=== PATIENT | male | born 1990 | race Caucasian/White ===

== ENCOUNTER 2017-05-11 13:31 | Emergency (ER) | payer OTHER ==
[~2017-05-11] VITALS: Ht 180.3 cm; Wt 99.8 kg
[2017-05-11 13:54] VITALS: BP 157/70
[2017-05-11] MEDS ORDERED: LIDOCAINE 1% PF 2 ML VIAL. INJ ONE (14:00)
--- NOTE | 2017-05-11 14:09 | PHYS DOC ---
Past Medical History Past Medical History: No Pertinent History Past Surgical History: Tonsillectomy Alcohol Use: None Drug Use: None Adult General Chief Complaint Chief Complaint: LACERATION/AVULSION HPI HPI Patient is a 26 year old male presents to the emergency department with complaints of a laceration to back of the head. Patient works for [employer] and was placing batteries on a shelf when 3 batteries fell one striking him in the back of her head. Patient states that he put his arms over his head to prevent any other injury to his head. He states he did hit a battery on the left upper extremity. He has no complaints of headache, blurred vision, double vision. He states he did not have loss of consciousness. He has no neck pain. Hemostasis obtained prior to arrival. Review of Systems Review of Systems Constitutional: Denies fever or chills [] Eyes: Denies change in visual acuity, redness, or eye pain [] HENT: Denies nasal congestion or sore throat [] Respiratory: Denies cough or shortness of breath [] Cardiovascular: No additional information not addressed in HPI [] GI: Denies abdominal pain, nausea, vomiting, bloody stools or diarrhea [] : Denies dysuria or hematuria [] Musculoskeletal: Denies back pain or joint pain [] Integument: Contusion left upper extremity, laceration scalp Neurologic: Denies headache, focal weakness or sensory changes [] Endocrine: Denies polyuria or polydipsia [] All other systems were reviewed and found to be within normal limits, except as documented in this note. Current Medications Current Medications Current Medications Medications (Trade) Dose Ordered Sig/Noe Start Time Stop Time Status Last Admin Dose Admin Lidocaine HCl (Xylocaine-Mpf 1% Vial) 2 ml 1X ONCE 05/11/17 14:00 05/11/17 14:02 DC Allergies Allergies Allergies Coded Allergies Type Severity Reaction Last Updated Verified latex Adverse Reaction Unknown irritation 05/11/17 Yes Physical Exam Physical Exam Constitutional: Well developed, well nourished, no acute distress, non-toxic appearance. [] HENT: Normocephalic, 1 cm linear laceration occiput without palpable step off or fracture, bilateral external ears normal, oropharynx moist, no oral exudates , nose normal. [] Eyes: PERRLA, EOMI, conjunctiva normal, no discharge. [] Neck: Normal range of motion, no paracervical or midline tenderness, supple, no stridor. [] Cardiovascular:Heart rate regular rhythm, no murmur [] Lungs & Thorax: Bilateral breath sounds clear to auscultation [] Abdomen: Bowel sounds normal, soft, no tenderness, no masses, no pulsatile masses. [] Skin: Warm, dry, no erythema, left upper extremity with contusion Back: No tenderness, no CVA tenderness. [] Extremities: No tenderness, no cyanosis, no clubbing, ROM intact, no edema. [] Neurologic: Alert and oriented X 3, normal motor function, normal sensory function, no focal deficits noted. [] Psychologic: Affect normal, judgement normal, mood normal. [] Current Patient Data Vital Signs Vital Signs Date Time Temp Pulse Resp B/P (MAP) Pulse Ox O2 Delivery O2 Flow Rate FiO2 05/11/17 13:54 98.7 76 18 100 Room Air 98.7 EKG EKG [] Radiology/Procedures Radiology/Procedures Procedure note: Laceration anesthetized with 1% lidocaine, 2 mL. Wound cleansed with Betadine, explored for foreign body none of which were noted. 2 ni placed. Patient tolerated well.[] Course & Med Decision Making Course & Med Decision Making Pertinent Labs and Imaging studies reviewed. (See chart for details) []She did not have loss of consciousness and denies midline spine tenderness or headache. At this time he is elected to monitor without CT of the head and neck. He is advised to return the emergency department his symptoms or concerns , close head injury precautions provided. He is follow-up with workman's comp in one day. Dragon Disclaimer Dragon Disclaimer This electronic medical record was generated, in whole or in part, using a voice recognition dictation system. Departure Departure Impression: Primary Impression: Scalp laceration Additional Impression: Contusion Disposition: 01 HOME, SELF-CARE Condition: STABLE Patient Instructions: Head Injury, Adult, Stitches, Ni or Skin Adhesive Strips, [id number] Additional Instructions: Him use Tylenol [id number] as labeled and is indicated for symptom management. Please follow-up with workman's comp in one day for further evaluation. Please follow up in 10 days for staple removal. Return to the emergency department his symptoms or concerns or worsening of current condition. Problem Qualifiers Primary Impression: Scalp laceration Encounter type: initial encounter Qualified Codes: S01.01XA - Laceration without foreign body of scalp, initial encounter Additional Impression: Contusion Encounter type: initial encounter Contusion area: upper arm Laterality: left Qualified Codes: S40.022A - Contusion of left upper arm, initial encounter MANUELA NAVARRO APRN May 11, 2017 14:09
== END 2017-05-11 14:25 | disposition home or self-care (01) ==
LOC: ER 13:31
DX: S01.01XA Laceration without foreign body of scalp, initial encounter (principal); S40.022A Contusion of left upper arm, initial encounter; Z91.040 Latex allergy status; W22.8XXA Striking against or struck by other objects, initial encounter; Y93.89 Activity, other specified; Y99.8 Other external cause status; Y92.89 Other specified places as the place of occurrence of the external cause
CPT/HCPCS: 12001; 99283-25